=== PATIENT | female | born 1955 | race Caucasian/White ===

== ENCOUNTER 2019-03-23 19:14 | Outpatient (REF) | payer BC, SELFPAY ==
[2019-03-23 19:54] LABS: Anion Gap 8.1 mmol/L (3-11); BUN 17 mg/dL (7-18); CO2 28.9 mmol/L (21.0-32.0); CREATININE 0.68 mg/dL (0.55-1.02); Calcium 9.4 mg/dL (8.5-10.1); Chloride 102 mmol/L (98-107); Glucose 88 mg/dL (74-106); Potassium 4.4 mmol/L (3.5-5.1); Sodium 139 mmol/L (136-145); TSH (W/Ref FT4) 0.79 uIU/mL (0.36-3.74)
== END 2019-03-23 19:34 ==
LOC: NCHCN 19:14
PROVIDERS: Visit Provider Nurse Practitioner Family
DX: R06.09 Other forms of dyspnea (principal)
CPT/HCPCS: 80048; 84443

== ENCOUNTER 2019-11-23 17:49 | Outpatient (REF) | payer OTHER, BC, SELFPAY ==
[2019-11-26 11:12] LABS: SARS-CoV-2 RNA Undetected (Undetected); SARS-CoV-2 Specimen Source Nasal
== END 2019-11-23 18:09 ==
LOC: NCHCN 17:49
PROVIDERS: PCP Physician Assistant; Visit Provider Physician Assistant
DX: R05 Cough (principal); Z20.828 Contact with and (suspected) exposure to other viral communicable diseases
CPT/HCPCS: U0003

== ENCOUNTER 2019-11-29 17:30 | Outpatient (REF) | payer BC, SELFPAY ==
[2019-11-29 19:35] LABS: Abs Immature Grans 0.01 10^3/uL (0.0-0.06); Absolute Basophil Count 0.02 10^3/uL (0.0-0.2); Absolute Lymphocyte Count 3.41 10^3/uL (1.2-3.4); Absolute Monocyte Count 0.41 10^3/uL (0.1-0.8); Absolute Neutrophil Count 2.42 10^3/uL (1.2-6.7); Basophils % 0.3; Eosinophils % 1.6; HCT 37.9 % (36.0-46.0); HGB 12.1 g/dL (11.2-15.7); Immature Grans % 0.2; Lymphocytes % 53.5; MCH 29.2 pg (27.0-33.0); MCHC 31.9 % (32.0-36.0); MCV 91.5 fL (80-95); MPV 9.3 fL (8.0-11.0); Monocytes % 6.4; Nucleated RBC 0 %; Platelet Count 326 10^3/uL (130-400); RBC 4.14 10^6/uL (3.93-5.22); RDW 12.3 % (11.7-14.6); RDW-SD 41.4 fL; WBC 6.37 10^3/uL (4.4-10.8)
[2019-11-29 20:13] LABS: ALT 22 U/L (14-59); AST 15 U/L (15-37); Alkaline Phosphatase 182 U/L (46-116); BUN 15 mg/dL (7-18); Bilirubin, Total 0.2 mg/dL (0.2-1.0); CREATININE 0.61 mg/dL (0.55-1.02); Calcium 9.6 mg/dL (8.5-10.1); Chloride 101 mmol/L (98-107); Ferritin 89 ng/mL (8-252); Glucose 86 mg/dL (74-106); Potassium 4.7 mmol/L (3.5-5.1); Sodium 137 mmol/L (136-145); TSH (W/Ref FT4) 1.48 uIU/mL (0.36-3.74); Total Protein 6.8 g/dL (6.4-8.2)
[2019-11-29 20:19] LABS: Iron 43 ug/dL (50-170); Total Iron Binding Capacity 344 ug/dL (250-450); Transferrin Sat 13 % (15-50)
== END 2019-11-29 17:50 ==
LOC: NCHCN 17:30
PROVIDERS: PCP Physician Assistant; Visit Provider Physician Assistant
DX: R42 Dizziness and giddiness (principal)
CPT/HCPCS: 80053; 82728; 83540; 83550; 84443; 85025

== ENCOUNTER 2020-07-03 21:45 | Outpatient (REF) | payer OTHER, BC, SELFPAY ==
[2020-07-03 19:02] LABS: Iron 43 ug/dL (50-170); Total Iron Binding Capacity 328 ug/dL (250-450); Transferrin Sat 13 % (15-50)
[2020-07-03 19:29] LABS: ALT 39 U/L (14-59); AST 22 U/L (15-37); Albumin 3.9 g/dL (3.4-5.0); Alkaline Phosphatase 204 U/L (46-116); Anion Gap 3.8 mmol/L (3-11); BUN 16 mg/dL (7-18); Bilirubin, Total 0.2 mg/dL (0.2-1.0); CO2 29.2 mmol/L (21.0-32.0); CREATININE 0.8 mg/dL (0.55-1.02); Calcium 9.2 mg/dL (8.5-10.1); Chloride 104 mmol/L (98-107); Ferritin 134 ng/mL (8-252); Glucose 90 mg/dL (74-106); Magnesium 1.9 mg/dL (1.8-2.4); Potassium 3.6 mmol/L (3.5-5.1); Sodium 137 mmol/L (136-145); Total Protein 6.9 g/dL (6.4-8.2); Vitamin B12 1643 pg/mL (193-986)
== END 2020-07-03 21:46 | disposition home or self-care (01) ==
LOC: NCHCN 21:45
PROVIDERS: PCP Physician Assistant; Visit Provider Nurse Practitioner Family
DX: G62.9 Polyneuropathy, unspecified (principal); M81.0 Age-related osteoporosis without current pathological fracture; R06.09 Other forms of dyspnea; R79.89 Other specified abnormal findings of blood chemistry; Z79.899 Other long term (current) drug therapy
CPT/HCPCS: 80053; 82607; 82728; 83540; 83550; 83735

== ENCOUNTER 2020-12-11 18:43 | Outpatient (REF) | payer BC, OTHER, SELFPAY ==
[2020-12-11 19:31] LABS: GGT 36 U/L (5-55)
[2020-12-11 19:35] LABS: Iron 98 ug/dL (50-170); Total Iron Binding Capacity 356 ug/dL (250-450); Transferrin Sat 28 % (15-50)
== END 2020-12-11 18:44 | disposition home or self-care (01) ==
LOC: NCHCN 18:43
PROVIDERS: PCP Physician Assistant; Visit Provider Nurse Practitioner Family
DX: R74.8 Abnormal levels of other serum enzymes (principal); D50.9 Iron deficiency anemia, unspecified
CPT/HCPCS: 82977; 83540; 83550

== ENCOUNTER 2021-09-24 14:53 | Outpatient (REF) | payer OTHER, BC, SELFPAY ==
[2021-09-24 19:20] LABS: Abs Immature Grans 0.01 10^3/uL (0.0-0.06); Absolute Basophil Count 0.02 10^3/uL (0.0-0.2); Absolute Eosinophil Count 0.06 10^3/uL (0.0-0.7); Absolute Lymphocyte Count 2.15 10^3/uL (1.2-3.4); Absolute Monocyte Count 0.48 10^3/uL (0.1-0.8); Absolute Neutrophil Count 2.96 10^3/uL (1.2-6.7); Basophils % 0.4; Eosinophils % 1.1; HCT 39.2 % (36.0-46.0); Immature Grans % 0.2; Lymphocytes % 37.9; MCH 30.7 pg (27.0-33.0); MCHC 33.2 % (32.0-36.0); MCV 93 fL (80-95); MPV 9.9 fL (8.0-11.0); Monocytes % 8.5; Neutrophils % 51.9; Platelet Count 286 10^3/uL (130-400); RBC 4.23 10^6/uL (3.93-5.22); RDW 12.2 % (11.7-14.6); RDW-SD 41.9 fL; WBC 5.68 10^3/uL (4.4-10.8)
[2021-09-24 19:37] LABS: Iron 117 ug/dL (50-170); Total Iron Binding Capacity 327 ug/dL (250-450); Transferrin Sat 36 % (15-50)
[2021-09-24 19:40] LABS: ALT 31 U/L (14-59); AST 20 U/L (15-37); Albumin 3.9 g/dL (3.4-5.0); Alkaline Phosphatase 150 U/L (46-116); Anion Gap 7.4 mmol/L (3-11); BUN 14 mg/dL (7-18); Bilirubin, Total 0.3 mg/dL (0.2-1.0); CO2 27.6 mmol/L (21.0-32.0); CREATININE 0.7 mg/dL (0.55-1.02); Calcium 9.7 mg/dL (8.5-10.1); Chloride 100 mmol/L (98-107); Glucose 97 mg/dL (74-106); Potassium 4.3 mmol/L (3.5-5.1); Sodium 135 mmol/L (136-145); Total Protein 6.7 g/dL (6.4-8.2)
== END 2021-09-24 14:54 | disposition home or self-care (01) ==
LOC: NCHCN 14:53
PROVIDERS: PCP Physician Assistant; Visit Provider Nurse Practitioner Family
DX: D50.9 Iron deficiency anemia, unspecified (principal); R74.8 Abnormal levels of other serum enzymes; E16.2 Hypoglycemia, unspecified
CPT/HCPCS: 80053; 83540; 83550; 85025

== ENCOUNTER 2022-12-11 15:16 | Outpatient (REF) | payer MEDICARE, SELFPAY ==
--- NOTE | 2022-12-11 13:35 | SKI_PTH ---
PATIENT: Jihan Fuentes LOC: [facility]#:[id number] AGE/SX: 67/F ROOM: RE12/11/[address]: Nusrat Guerrero : 1955 BED: DIS: 12/11/2022 SPEC #: [id number] RECD: 12/12/22 12:50 STATUS: MARINO REQ #: [id number] MORE: 12/11/22 13:[address]: Shilpa Guerrero DEPT: Surgical Specimen RECD BY: Elizabeth Sabillon ENTERED: 12/12/22 12:51 SP TYPE: JENY HANSEN DR: Kisha Sosa Tissues: 1 - SKIN BIOPSY(SHAVE/PUNCH) Procedures: SKIN LEVEL 4 Comments: [id number]
== END 2022-12-11 15:17 | disposition home or self-care (01) ==
LOC: NCHCN 15:16
PROVIDERS: PCP Physician Assistant; Visit Provider Nurse Practitioner Family
DX: L82.1 Other seborrheic keratosis (principal); L98.8 Other specified disorders of the skin and subcutaneous tissue
CPT/HCPCS: 88305

== ENCOUNTER 2024-02-09 14:46 | Outpatient (REF) | payer MEDICARE, SELFPAY ==
[2024-02-11 10:48] LABS: Lyme Ab w Rflx to Lyme Confirm Negative (Negative)
[2024-02-13 15:58] LABS: Anaplasma phagocytophilum Negative (Negative); B. miyamotoi PCR Negative (Negative); Babesia divergens/MO-1 Negative (Negative); Babesia duncani Negative (Negative); Babesia microti Negative (Negative); Ehrlichia chaffeensis Negative (Negative); Ehrlichia ewingii/canis Negative (Negative); Ehrlichia muris eauclairensis Negative (Negative)
== END 2024-02-09 14:47 | disposition home or self-care (01) ==
LOC: NCHCN 14:46
PROVIDERS: PCP Physician Assistant; Visit Provider Nurse Practitioner Family
DX: M25.59 Pain in other specified joint (principal)
CPT/HCPCS: 87798; 86618

== ENCOUNTER 2024-07-12 10:37 | Outpatient (REF) | payer MEDICARE, BC, SELFPAY ==
[2024-07-13 12:18] LABS: Chlamydia Result Negative (Negative); GC Result Negative (Negative)
== END 2024-07-12 10:38 | disposition home or self-care (01) ==
LOC: LBN 10:37
PROVIDERS: PCP Physician Assistant; Visit Provider Obstetrics & Gynecology
DX: Z12.4 Encounter for screening for malignant neoplasm of cervix (principal)
CPT/HCPCS: 87491; 87591; 88142; 87624

== ENCOUNTER 2024-08-02 02:40 | Outpatient (CLI) | payer MEDICARE, BC, SELFPAY ==
--- NOTE | 2024-08-02 06:45 | DI.US_ITS ---
Exam(s) US PELVIS TRANSVAGINAL EXAM: US PELVIS TRANSVAGINAL CLINICAL HISTORY: dyspareunia,llq pain,n94.12,r10.32 TECHNIQUE: Transabdominal and transvaginal imaging was performed using standard protocol. COMPARISON: CT CT CHEST LOW DOSE CA SCREENING from 11/17/2019 FINDINGS: UTERUS: Retroverted. 6.0 x 2.3 x 4.1 cm Endometrium: 4 mm Myometrium: Unremarkable. Cervix: Unremarkable. OVARIES: Right: Cyst or mass: None. Left: Cyst or mass: None. DOPPLER: Color: Symmetric and uniform flow to both ovaries. No hyperemia. Dilated pelvic veins which could indicate pelvic congestion syndrome. CUL-DE-SAC: Free fluid: None. IMPRESSION: 1. Normal-appearing uterus with endometrial stripe within normal limits. 2. Unremarkable bilateral ovaries. DATA REPOSITORY:
== END 2024-08-02 03:00 ==
LOC: DI 02:40
PROVIDERS: PCP Physician Assistant; Visit Provider Obstetrics & Gynecology
DX: N94.12 Deep dyspareunia (principal); R10.32 Left lower quadrant pain
CPT/HCPCS: 76830; 76856

== ENCOUNTER → 2024-08-19 14:24 | Outpatient (BNVA) | payer MEDICARE, BC, SELFPAY | PROVIDERS: PCP Nurse Practitioner Family; Referring Provider Obstetrics & Gynecology; Visit Provider Surgery | DX: K64.8 Other hemorrhoids (principal); L91.8 Other hypertrophic disorders of the skin | CPT/HCPCS: 99204 ==

== ENCOUNTER → 2024-11-18 13:54 | Outpatient (BNVA) | payer MEDICARE, BC, SELFPAY | PROVIDERS: PCP Nurse Practitioner Family; Referring Provider Nurse Practitioner Family; Visit Provider Surgery | DX: Z01.818 Encounter for other preprocedural examination (principal); K64.9 Unspecified hemorrhoids | CPT/HCPCS: 99024 ==

== ENCOUNTER 2024-12-07 06:05 | Day surgery (SDC) | payer MEDICARE, BC, SELFPAY ==
--- NOTE | 2024-12-06 13:51 | PDOC.DSDIS_ITS ---
Date of service: 12/07/24 Discharge Plan Disposition Patient Disposition: Home Condition: Good Discharge Details Reason For Visit: Hemorrhoidectomy Attending Provider: Ankit Green Primary Care Provider: Shilpa Guerrero Home Meds and New Rx's Prescriptions: New tramadol 50 mg tablet 50 mg PO Q8H PRNQty: 15 0RF Rx Instructions: Take 1 tablet by mouth up to every 8 hours if needed for severe pain Continued tiotropium bromide [Spiriva with HandiHaler] 18 mcg capsule, w/inhalation device 1 cap inhalation DAILY Rx Instructions: puncture 1 cap using device; one dose = 2 inhalations fluticasone propion-salmeterol [Advair Diskus] 100-50 mcg/dose blister with device 1 inh inhalation BID Ca carb-D3-mag uu-gna-qqwv-Zn 300 mg-20 mcg- 25 mg-0.5 mg tablet 1 tab PO DAILY estradiol [Estrace] 0.01 % (0.1 mg/gram) cream 1 g vaginal DAILY 30 Days Qty: 42.5 2RF Rx Instructions: Apply nightly for 7 nights, then every other night for 7 nights, then every 2-3 days medroxyprogesterone 10 mg tablet 10 mg PO DAILY 90 Days Qty: 90 3RF azelastine 137 mcg (0.1 %) aerosol,spray 1 spray intranasal BID Patient Comments: only using PRN during allergy season Rx Instructions: administer into each nostril albuterol sulfate [ProAir HFA] 90 mcg/actuation HFA aerosol inhaler 2 puff inhalation Q6H PRN ibuprofen 600 mg tablet 600 mg PO TID PRN cholecalciferol (vitamin D3) 25 mcg (1,000 unit) capsule 25 mcg PO DAILY ferrous sulfate 324 mg (65 mg iron) tablet,delayed release (DR/EC) 324 mg PO DAILY Centrum Silver 0.4-300-250 mg-mcg-mcg tablet 1 tab PO DAILY meclizine 12.5 mg tablet 12.5 mg PO TID PRN glucosamine-chondroitin 900 mg tablet 900 mg PO DAILY Discharge Instructions Instructions: Hemorrhoidectomy (DC), How to Do a Sitz Bath Additional Instructions: Gladonnie, it was great seeing you today, and I hope you make a quick and uneventful recovery from the procedure. Things went very smoothly. I excised and closed 2 large hemorrhoids, that should provide relief from your symptoms. As we discussed beforehand, use some long-acting anesthetic to help with pain after surgery, but as I am sure you already anticipate this can be an uncomfortable procedure. I have added a prescription for some tramadol to use if you needed. Alternating ekal-isb-ihzferg Tylenol and ibuprofen every 6 hours for the first few days is also a helpful strategy. Often times recommend the patient's use a stool softener for the first 3 to 4 days to help with comfort as well. Uhbz-hjd-hcpuvui MiraLAX is generally the best tolerated option. Use 1 capful mixed with 8 ounces of water once in the morning and once in the evening. I also provided some instructions for sitz bath. I do not recall if we spoke about this beforehand, but a sitz bath essentially is soaking your backside underwater for 10 to 15 minutes to help reduce swelling and pain after hemorrhoid surgery. I recommend mixing about a tablespoon of Epsom salts or baking soda per gallon of warm water. Soaking once in the morning, once in the evening, and after each bowel movement for the first few days if you are able, it is a great strategy. You may also have some intermittent bleeding over the next few days, using a menstrual pad or similar product is a good preventative measure. If you need anything or have any questions at all, please do not hesitate to call at any time. Stand Alone Forms: Anesthesia Discharge Inst., Irene Rapp (DSU) Referrals: Ankit Green MD [ [facility] STAFF PHYSICIAN, Surgery] - 12/23/24 2:00 pm Activity:: Activity as Tolerated Diet:: As Tolerated Discharge Orders Discharge Orders: Discharge Order (Routine); Ordered 12/06/24 Ordered By: Ankit Green DS: Diagnosis Discharge Diagnosis (1) Hemorrhoids: Status: Acute Asessment and Plan: Outpatient postoperative follow-up
--- NOTE | 2024-12-06 13:52 | W.PM.OP ---
Operative Note Operative Note PRE-OP DIAGNOSIS: Hemorrhoids POST-OP DIAGNOSIS: same PROCEDURE: Excisional hemorrhoidectomy SURGEON: Ankit Green DIRECTOR PHARMACOVIGILANCE: Britni Laboy ANESTHESIA TYPE: Local By Surgeon and General LMA/ETT Refer to Anesthesia Record PATHOLOGY: none sent COMPLICATIONS: None Patient was transported to: PACU Patient's condition: stable Indications: Jihan Leyva is a 69-year-old woman with symptomatic internal hemorrhoids Findings: Prolapsed hemorrhoids of the right anterior and right posterior hemorrhoid columns Procedure Description: I met with large in the preoperative area, reviewed the plan for surgery. She did not have any new questions. We then moved back to the operating room. She was intubated on the stretcher in the usual manner, and then rolled to the prone position. Great care was taken to ensure that she was padded and supported appropriately. The buttocks, anus, and perineum were then prepped. I established a generous field block using local anesthetic mixed with Exparel. There were prolapsed hemorrhoids that were easily reduced, but prolapsed again spontaneously. Digital rectal exam was otherwise normal. I started with the right anterior column. The innermost portion of the column was grasped with an Allis clamp, and gently delivered off of the surrounding mucosa. The mucosa was incised sharply, great care was taken to avoid the underlying muscle. Next, using a small LigaSure device, the vascular column was divided along its length. This was continued to the external portion. Once the entire hemorrhoid complex was completely excised, the inner mucosa was reapproximated with a running 3-0 Vicryl. The external tissue with along the endoderm was closed with interrupted 2-0 Vicryl's. I then turned my attention to the right posterior column. Again, the inner most extent of the hemorrhoid column was identified and grasped with an Allis clamp. 2-0 Vicryl was used to reapproximate the distal rectal mucosa, and the external portion of the endoderm was closed with interrupted 3-0 Vicryl's. Digital rectal exam was normal at that point the wounds were hemostatic. The skin and soft tissues were irrigated clean, and large and was rolled back to the supine position prior to extubation and transferred to the recovery unit. Date of Procedure: 12/07/24
[2024-12-07] VITALS (13 sets, daily range): BP systolic 107–160; BP diastolic 64–77; PULSE 50–68; RESP 15–19; TEMP 36–36.6; O2SAT 98–100; BMI 20.6
--- NOTE | 2024-12-07 06:16 | W.ANESPRE ---
General Info Date of Service Date Performed: 12/07/24 Height: 5 ft 5 in Weight: 56.245 kg Body Mass Index (BMI): 20.6 Surgical Procedure: Operation Date: 12/07/24 07:40 Proposed Procedure Side Surgeon p Excision of Hemorrhoids Ankit Green MD Meds Allergies and Home Medications Allergies Allergy/AdvReac Type Severity Reaction Status Date / Time clarithromycin (From Biaxin) Allergy Intermediate Psychosis Verified 12/07/24 06:43 Home Medication ?Medication ?Instructions ?Recorded albuterol sulfate 90 mcg/actuation 2 puff inhalation Q6H PRN 12/12/20 aerosol inhaler (ProAir HFA) azelastine 137 mcg (0.1 %) nasal 1 spray intranasal BID 12/12/20 spray cholecalciferol (vitamin D3) 25 25 mcg PO DAILY 12/12/20 mcg (1,000 unit) capsule ferrous sulfate 324 mg (65 mg 324 mg PO DAILY 12/12/20 iron) tablet,delayed release ibuprofen 600 mg tablet 600 mg PO TID PRN 12/12/20 qmjymhqn-xcj-kznhu acid 0.4 1 tab PO DAILY 12/12/20 mg-lycopene 300 mcg-lutein 250 mcg tablet (Centrum Silver) calcium 300 mg-D3 20 mcg-magnesium 1 tab PO DAILY 08/19/24 25 mg-coppr 0.5 qa-yzfg-iwui tablet fluticasone 100 mcg-salmeterol 50 1 inh inhalation BID 08/19/24 mcg/dose blistr powdr for inhalation (Advair Diskus) tiotropium bromide 18 mcg capsule 1 cap inhalation DAILY 08/19/24 with inhalation device (Spiriva with HandiHaler) estradiol 0.01% (0.1 mg/gram) 1 g vaginal DAILY 30 days #42.5 09/20/24 vaginal cream (Estrace) grams medroxyprogesterone 10 mg tablet 10 mg PO DAILY pelvic congestion 09/20/24 syndrome 90 days #90 tabs meclizine 12.5 mg tablet 12.5 mg PO TID PRN 10/20/24 antiarthritic combination no.2 900 900 mg PO DAILY 12/03/24 mg tablet (glucosamine-chondroitin) Current Visit Medications: Current Medications Generic Name Dose Route Start Last Admin Trade Name Freq PRN Reason Stop Dose Admin Acetaminophen 1,000 mg 12/07/24 06:00 Acetaminophen 500 Mg Tab PO 12/07/24 23:59 PREOP SG Celecoxib 200 mg 12/07/24 06:00 Celecoxib 200 Mg Cap PO 12/07/24 23:59 PREOP SG Gabapentin 600 mg 12/07/24 06:00 Gabapentin 300 Mg Cap PO 12/07/24 23:59 PREOP SG Hydromorphone HCl 0.2 mg 12/06/24 13:53 Hydromorphone 2 Mg/Ml Syr IVP 01/05/25 13:52 Q1H PRN PRN Ringer's Solution 1,000 mls @ 80 mls/hr 12/07/24 06:00 IV 12/07/24 23:59 [facility] IV Miscellaneous Supplies 1 each 12/07/24 06:00 Iv Access IV 12/07/24 23:59 DIRECTED SG Sodium Biphosphate/Sodium Phosphate 133 ml 12/07/24 06:00 Na Phosphate Enema-Adult 133 Ml Btl MO 12/07/24 23:59 DIRECTED PRN Sodium Chloride 0 ml 12/07/24 06:00 Normal Saline Flush 10 Ml Syr IV 12/07/24 23:59 PRN PRN Sodium Chloride 0 ml 12/07/24 06:00 Normal Saline 10 Ml Vial IJ 12/07/24 23:59 DIRECTED PRN Sterile Water 0 ml 12/07/24 06:00 Water,Injection,Sterile 10 Ml Vial IJ 12/07/24 23:59 DIRECTED PRN Tramadol HCl 50 mg 12/06/24 13:53 Tramadol 50 Mg Tab PO 01/05/25 13:52 Q6H PRN PRN Pain PFSH Active Problems Active Problems: Problem Status Onset Code Hemorrhoids Acute K64.9 History of cholecystectomy Chronic Z90.49 Personal history of nicotine dependence Acute Z87.891 Depression with anxiety Acute F41.8 Chronic sinusitis Acute J32.9 Lower back pain Acute M54.5 GERD (gastroesophageal reflux disease) Chronic K21.9 COPD (chronic obstructive pulmonary disease) Chronic J44.9 Iron deficiency anemia Acute D50.9 Hypoglycemia Acute E16.2 Bladder disorder Acute N32.9 Neuropathy, peripheral Acute G62.9 Pelvic congestion syndrome Acute N94.89 Elevated alkaline phosphatase level Acute R74.8 Insomnia Acute G47.00 Medical History Medical History History of tobacco abuse Tobacco Smoking/Tobacco Use Status: Former Tobacco Use Passive smoking exposure: No Prental History History 4 Para Hx # Term Pregnancies 2 Multiple births Hx # Pregnancies Ectopic pregnancies AB induced Hx Number of Living Children 2 AB spontaneous 2 Past Pregnancies Del. Date GA/Weeks # Preg Succ Route Wgt Sex Labor Lgth Anesthesia Location Prov Complic 07/26/75 No Yes vaginal [place] 01/27/79 No Yes vaginal Male [place] mass Vital Signs and Lab Results Vital Signs Most Recent Vital Signs in EMR: Temp Pulse Resp BP Pulse Ox 36.6 C 68 17 141/71 H 99 12/07/24 06:20 12/07/24 06:20 12/07/24 06:20 12/07/24 06:20 12/07/24 06:20 Anesthesia Assessment and Plan Anesthesia History Personal History: No History of Anesthesia Complications Family History: No Family History of Anesthesia Complications Exercise Tolerance Exercise Tolerance: Metabolic Equivalents>4 Cardiac & Pulmonary Exam Cardiac Exam: Normal S1/S2 Heart Sounds Pulmonary Exam: Clear Bilateral Breath Sounds Implantable Cardiac Device Does patient have a Pacemaker or an ICD?: No Airway Exam Known Difficult Airway: No Mallampati Class: 4 Mouth Opening: Narrow (< 3cm) Thyromental Distance: Less than 3 cm Neck Range of Motion: Full ROM Neck Circumference: Normal Teeth Condition: Normal Dentition ASA Classification ASA Score: ASA 2 Emergency Case?: No NPO Status NPO Status: NPO Clears >2 hours, Solids >8 hours Anesthesia Plan Resuscitation Status: Full Code Anesthesia Technique: General Anesthesia Airway Planned: Endotracheal Tube Monitors Used: Standard Monitors Preoperative Comments:: 69 yo for hemorrhoidectomy. Sig PMHx: COPD (albuterol, spiriva), GERD, peripheral neuropathy/sciatica, depression/anxiety. Former smoker. Discussed GA vs spinal. She is not interested in a spinal today due to sciatica and neuropathy issues. Plan GAETT.
[2024-12-07] MEDS: Acetaminophen 500 MG TAB 1000 MG PO (06:45)
[2024-12-07] MEDS: Celecoxib 200 MG CAP PO (06:45)
[2024-12-07] MEDS: Gabapentin 300 MG CAP 600 MG PO (06:45)
[2024-12-07] MEDS: Na Phosphate Enema-Adult 133 ML BTL PR (06:47)
[2024-12-07] MEDS: Lactated Ringers 1,000 ML 80 ML IV (07:35)
[2024-12-07] MEDS: Bupivacaine LIPOSOME/PF 133 MG/10 ML VIAL IJ (08:03)
[2024-12-07] MEDS: Bupivacaine 0.5% Pres-Free 30 ML VIAL (08:03)
--- NOTE | 2024-12-07 09:07 | W.ANESPOSTOP ---
Postoperative Evaluation Date, Time and Location Date Performed: 12/07/24 Time Performed: 09:07 Patient Location: PACU Vital Signs Most Recent Imported Vital Signs: Most Recent Vital Signs Temp Pulse Resp BP Pulse Ox 36.3 C L 54 L 15 119/64 98 12/07/24 09:02 12/07/24 09:01 12/07/24 09:01 12/07/24 09:00 12/07/24 09:01 Pain Score Most Recent Pain Score: Most Recent Pain Score Pain Level 4 12/07/24 09:02 Assessment Mental Status: Awake (Alert & Oriented to Patient Baseline) Airway and Respiratory Function: Patent airway with normal (patient baseline) respiratory exam Cardiovascular Function: Hemodynamically Stable Hydration Status: Adequately Hydrated Nausea & Vomiting: No Nausea or Vomiting Pain: Pain is tolerable per patient Peripheral Nerve Block: Patient did not receive a nerve block
== END 2024-12-07 10:10 | disposition home or self-care (01) ==
LOC: SUR 06:06
PROVIDERS: PCP Nurse Practitioner Family; Visit Provider Surgery
PROC: (CPT 46260; principal; 2024-12-07 07:30)
DX: K64.8 Other hemorrhoids (principal); J44.9 Chronic obstructive pulmonary disease, unspecified; K21.9 Gastro-esophageal reflux disease without esophagitis
CPT/HCPCS: 46260; J0665; J0666; J1100; J2405; J2704; J3475

== ENCOUNTER → 2024-12-23 13:54 | Outpatient (BNVA) | payer MEDICARE, BC, SELFPAY | PROVIDERS: PCP Nurse Practitioner Family; Referring Provider Nurse Practitioner Family; Visit Provider Surgery | DX: Z09 Encounter for follow-up examination after completed treatment for conditions other than malignant neoplasm (principal); K64.8 Other hemorrhoids | CPT/HCPCS: 99024 ==

== ENCOUNTER 2025-02-08 18:52 | Outpatient (REF) | payer MEDICARE, BC, SELFPAY | END 2025-02-08 18:53 | disposition home or self-care (01) | LOC: NCHCN 18:52 | PROVIDERS: PCP Nurse Practitioner Family; Visit Provider Nurse Practitioner Family | DX: N76.0 Acute vaginitis (principal) | CPT/HCPCS: 87480; 87510; 87660 ==